=== PATIENT | female | born 1990 | race Caucasian/White ===

== ENCOUNTER 2017-05-05 19:29 | Emergency (ER) | payer OTHER ==
[~2017-05-05] VITALS: Ht 162.6 cm; Wt 62.0 kg
[2017-05-05 19:36] VITALS: BP 124/76; PULSE 119; RESP 18; TEMP 98.1; O2SAT 100
[2017-05-05] MEDS ORDERED: SODIUM CHLOR 0.9% 1000 ML INJ 1,000 ML IV ONE (19:42)
[2017-05-05] MEDS ORDERED: MORPHINE SULFATE 4 MG/ML INJ IV PUSH ONE ×2 (19:45→21:45)
[2017-05-05] MEDS ORDERED: ONDANSETRON HCL 4 MG/2 ML VIAL IVP ONE (19:45)
--- NOTE | 2017-05-05 19:56 | PD ---
HPI Chief Complaint: Related Problem Time Seen by Provider: 19:32 Travel History International Travel<30 days: No Contact w/Intl Traveler<30days: No Traveled to known affect area: No History of Present Illness HPI The patient is a , had twins on first delivery at 37 weeks vaginally, whose last normal menstrual cycle was at the beginning of February. 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 The patient then took a home test which was positive. The patient was then seen at [facility] where she had a test which was positive. She has an appointment on May [address] Jenkins, and was seen on 1 prior visit where she had a positive test , but no formal ultrasound. The patient states she went home earlier today and was using the restroom when she passed a large red gelatinous mass which she is unsure was blood versus a product of conception. She does have some lower abdominal cramping mostly in the right lower aspect. She denies any nausea or vomiting. She has been taking a vitamin. She does have a history of tobacco use, denies any chronic medical problems. The patient was brought in by [facility] who was taking the patient to [facility] , however, when they called medical control they were advised by the charge nurse to not stop at [facility] and to continue on to [facility]. [facility] Past Medical History Medical History: Denies Significant Hx Diminished Hearing: No Tetanus Vaccination: < 5 Years ?: LMP: 02/14/2017 : 2 Para: 2 Past Surgical History Section: Yes Social History Alcohol Use: No Tobacco Use: Yes Substance Use: No Allergies-Medications (Allergen,Severity, Reaction): Coded Allergies: No Known Allergies (Unverified , 05/05/17) Reported Meds & Prescriptions Reported Meds & Active Scripts Active No Active Prescriptions or Reported Medications Review of Systems Except as stated in HPI: all other systems reviewed are Neg Gastrointestinal: No: Nausea, Vomiting Genitourinary: Positive: Pelvic Pain (crampy right lower side), Vaginal Bleeding, Other () Physical Exam Narrative GENERAL: Awake, alert, pleasant 26-year-old female who appears her stated age and is in no acute respiratory distress. SKIN: Focused skin assessment warm/dry. HEAD: Atraumatic. Normocephalic. EYES: No injection or drainage. ENT: No nasal bleeding or discharge. Mucous membranes pink and moist. NECK: Trachea midline. No JVD. GASTROINTESTINAL: Abdomen soft, gravid below the umbilicus. No rebound tenderness, guarding, rigidity. Pelvic: Exam was performed in the presence of a female nurse. External examination reveals no rashes or lesions. Speculum examination reveals blood in the vaginal vault with a few small clots. These were removed with Garcia swabs and 4 x 4's folded on Yamilka forceps. The cervix had a bluish tinge, was approximately 4 mm in diameter with some blood at the os. Back: No CVA tenderness. MUSCULOSKELETAL: No obvious deformities. No clubbing. No cyanosis. No edema. NEUROLOGICAL: Awake and alert. No obvious cranial nerve deficits. Motor grossly within normal limits. Normal speech. PSYCHIATRIC: Appropriate mood and affect; insight and judgment normal. Data Data Last Documented VS Vital Signs Date Time Temp Pulse Resp B/P (MAP) Pulse Ox O2 Delivery O2 Flow Rate FiO2 05/05/17 19:36 98.1 119 18 124/76 (92) 100 Orders Orders Beta Hcg (Quant/Titer) (05/05/17 19:42) Complete Rh (05/05/17 19:42) Us Pelvis (Ques Preg/Ectopic) (05/05/17 ) Urinalysis - C+S If Indicated (05/05/17 19:42) Iv Access Insert/Monitor (05/05/17 19:42) Sodium Chlor 0.9% 1000 Ml Inj (Ns 1000 M (05/05/17 19:42) Ondansetron Inj (Zofran Inj) (05/05/17 19:45) Morphine Inj (Morphine Inj) (05/05/17 19:45) Ed Urine Pregnancytest Poc (05/05/17 20:39) Morphine Inj (Morphine Inj) (05/05/17 21:45) Labs Laboratory Tests Test 05/05/17 19:58 05/05/17 20:40 Human Chorionic Gonadotropin, Quant [id number] MIU/ML Urine Color LIGHT-YELLOW Urine Turbidity CLEAR Urine pH 7.5 Urine Specific [place] 1.004 Urine Protein NEG mg/dL Urine Glucose (UA) NEG mg/dL Urine Ketones NEG mg/dL Urine Occult Blood MOD Urine Nitrite NEG Urine Bilirubin NEG Urine Urobilinogen LESS THAN 2.0 MG/DL Urine Leukocyte Esterase NEG Urine RBC 1 /hpf Urine WBC 1 /hpf Urine Squamous Epithelial Cells 1 /hpf Urine Bacteria RARE /hpf Microscopic Urinalysis Comment CULT NOT INDICATED MDM Medical Decision Making Medical Screen Exam Complete: Yes Emergency Medical Condition: Yes Medical Record Reviewed: Yes Interpretation(s) Laboratory Tests Test 05/05/17 19:58 05/05/17 20:40 Human Chorionic Gonadotropin, Quant [id number] MIU/ML Urine Color LIGHT-YELLOW Urine Turbidity CLEAR Urine pH 7.5 Urine Specific [place] 1.004 Urine Protein NEG mg/dL Urine Glucose (UA) NEG mg/dL Urine Ketones NEG mg/dL Urine Occult Blood MOD Urine Nitrite NEG Urine Bilirubin NEG Urine Urobilinogen LESS THAN 2.0 MG/DL Urine Leukocyte Esterase NEG Urine RBC 1 /hpf Urine WBC 1 /hpf Urine Squamous Epithelial Cells 1 /hpf Urine Bacteria RARE /hpf Microscopic Urinalysis Comment CULT NOT INDICATED Last Impressions Pelvis Ultrasound 05/05/17 0000 Signed Impressions: Service Date/Time: , May 05, 2017 20:38 - CONCLUSION: 1. Single , viable intrauterine at approximately 8 weeks gestational age. Subchorionic hemorrhage is demonstrated as above. Patient reports twin ; I only see one fetus/gestational sac currently. 2. No acute abnormality of the ovaries. Small corpus luteal cyst on the left. 3. No free fluid. Gilberto Duron MD Differential Diagnosis Differential diagnosis includes , threatened AB, incomplete AB, inevitable AB, completed AB, UTI, dehydration, ectopic . Narrative Course IV was established, labs are drawn and sent, and the patient was placed on cardiac telemetry monitoring and continuous pulse oximetry monitoring. Bedside ultrasound was performed which reveals an IUP with positive heart tones. However, the products of conception were brought by EMS, she did have a large, clear, red gelatinous mass, this was sent to lab for products of conception. Type and screen was sent to lab. Formal ultrasound was ordered. The patient was administered 1 L of normal saline and 4 mg of morphine intravenously. As the patient did pass what appeared to be products of conception and still has what appears be an IUP, the patient may have had a twin gestation, fraternal, with passage of one embryo versus subchorionic hemorrhage. The patient's blood type is O+, therefore, no RhoGAM indicated. Beta hCG is greater than 85,000. Ultrasound reveals IUP with positive heart tones. I had a discussion with the OB hospitalist who states the patient is stable for outpatient follow- up with her construction helper. Procedures Procedure Narrative A bedside ultrasound was performed with a curvilinear probe which reveals an IUP with positive heart tones. The patient tolerated the procedure without difficulty and there was no obvious complications. Diagnosis Primary Impression: Threatened Patient Instructions: General Instructions Additional Instructions: Follow-up with your construction helper. Please provide the patient a copy of her labs and ultrasound at discharge. Bedrest precautions. No heavy lifting or work. Med/Other Pt SpecificInfo: No Change to Meds Scripts No Active Prescriptions or Reported Meds Disposition: 01 DISCHARGE HOME Condition: Stable Earl Duke MD May 05, 2017 19:56
[2017-05-05 20:52] LABS: BACTERIA, URINE RARE /hpf; BLOOD, URINE MOD (NEG); COMMENT (UR) CULT NOT INDICATED; CULTURE IF INDICATED CULT NOT INDICATED; GLUCOSE,URINE NEG (NEG); KETONE, URINE NEG (NEG); NITRITE,URINE NEG (NEG); PH, URINE 7.5 (5.0-8.5); SQUAMOUS EPITHELIAL CELL URINE 1 /hpf (0-5); URINE COLOR LIGHT-YELLOW (YELLW/STRAW)
[2017-05-05 20:59] LABS: BETA HCG QUANT 85664 MIU/ML (0-5)
--- NOTE | 2017-05-05 21:38 | RADRPT ---
EXAM DATE/TIME: 05/05/2017 20:38 [facility] COMPARISON: No previous studies available for comparison. INDICATIONS : Bleeding while . LAB(S): Beta-hC MEDICAL HISTORY : . Vaginal bleeding. SURGICAL HISTORY : section. ENCOUNTER: Initial ACUITY: 2 days PAIN SCORE: 0/10 LOCATION: Bilateral pelvis MEASUREMENTS: UTERUS: 10.2 x 8.1 x 5.3 cm ENDOMETRIAL STRIPE: 14 mm RIGHT OVARY: 3.7 x 2.3 x 2.1 cm LEFT OVARY: 3.1 x 2.4 x 1.7 cm FREE FLUID: No CROWN RUMP LENGTH: 1.8 cm = 8 WKS 2 DAYS FHR: 169 BPM FINDINGS: UTERUS: Gestational sac and pole seen in the uterine cavity. [place] rump length 17 mm corresponding to a pproximately 8 weeks gestational age. heart tones are demonstrated. There is 2.7 x 1.5 x 2.1 cm heterogeneous fluid collection adjacent to the gestational sac, probably a subacute subchorionic hem orrhage. RIGHT OVARY: Ovary contains no mass or significant cystic lesion. LEFT OVARY: There is an 11 x 14 x 5 mm cyst, probably corpus luteal. MISCELLANEOUS: No free fluid. CONCLUSION: 1. Single, viable intrauterine at approximately 8 weeks gestational age. Subchorionic hemor rhage is demonstrated as above. Patient reports twin ; I only see one fetus/gestational sac currently. 2. No acute abnormality of the ovaries. Small corpus luteal cyst on the left. 3. No free fluid. Gilberto Duron MD on May 05, 2017 at 21:33 Board Certified Radiologist. This report was verified electronically.
== END 2017-05-05 21:59 | disposition home or self-care (01) ==
LOC: NEPE 19:29
DX: O20.0 Threatened abortion (principal); Z3A.08 8 weeks gestation of pregnancy
CPT/HCPCS: 76700; 81001; 84702; 84703; 86901; 88305; 96361; 96374; 96375; 96376; 99285; J2270; J2405; J7030; 88300